=== PATIENT | female | born 1980 | race Caucasian/White ===

== ENCOUNTER 2024-05-19 11:21 | Emergency (ER) | payer OTHER, SELFPAY ==
--- NOTE | 2024-05-19 11:28 | ED.GENMED ---
ED Provider Triage
<CASANDRA Matos - Last Filed: 05/19/24 14:40>
-
Patient seen by provider in Triage?: Seen in Triage
Attestation: A medical screening examination has been initiated by a qualified medical provider. Based on the assessment performed at this time, it has been determined that an emergent medical condition may exist and the patient has been informed
that further medical evaluation and possible additional diagnostic testing may be needed.
HPI: 43 yr old female with past medical history of lymphocytic Hodgkin's currently receiving immune therapy presents to the ED for eval of Chest pain. Since May 02 she felt like she had indigestion, 'burning ' worse with sleeping and laying
flat. She mcclendon however feel pain in left upper scapula region . She reports pain is worse at night. She feels more a dull ache in he upper left back during the day.midly SOB w/ exertion.
She had initial EKG done on May 02 and was called and was told it was abnormal yesterday.
(Followed by DR De La Rosa)
Pt with no CAD history.
Non smoker
Pt will need to be premedicate for ct scan
GENERAL: Alert , in no apparent distress
EYE: No visual abnormalities.
NECK: Trachea midline
ENT: No visible abnormalities.
LUNGS: No acute respiratory distress
CV: Tachycardic
NEUROLOGICAL: Alert and oriented
SKIN: Skin intact. No visible changes.
MUSCULOSKELETAL: Moving extremities normally
PSYCH: Normal and appropriate interaction.
This is a medical evaluation conducted in person to initiate diagnostic evaluation and provide initial therapeutics. Please see further documentation by the treating clinician.
History of Present Illness
<CASANDRA Matos - Last Filed: 05/19/24 14:40>
General
Chief Complaint: Chest Pain
Time Seen by Provider: 05/19/24 15:17
<Rohit Mullins Jr., PA-C - Last Filed: 05/19/24 19:31>
General
Source: patient
Exam Limitations: none
Nursing documentation reviewed up to this point in time: agreed with
History of Present Illness
History of Present Illness:
43-year-old female presenting to the emergency department today with concerns of palpitations seems to be worse at night also some achiness to the left chest described as tightness as well intermittently to the left arm and back. Worse at night
worse laying down improves during the day. Denies nausea vomiting diaphoresis. He is getting treatment currently for Hodgkin's lymphoma
Past History
<CASANDRA Matos - Last Filed: 05/19/24 14:40>
Past History
ED Past Medical History: None
ED Past Surgical History: None
Review of Systems
<Rohit Mullins Jr., PA-C - Last Filed: 05/19/24 19:31>
Review of Systems
Allergies reviewed?: Yes
All Other Systems: ROS reviewed and negative except as documented in HPI and ROS
Phy Exam
<Rohit Mullins Jr., PA-C - Last Filed: 05/19/24 19:31>
Physical Exam
Physical Exam:
GENERAL: Alert , in no apparent distress
EYE: pupils equal and reactive
NECK: Supple, no significant adenopathy.
ENT: o/p clr, mmm.
CARDIAC: Regular rate and rhythm .
LUNGS: Clear breath sounds bilaterally, no acute respiratory distress, no wheezes/rales/rhonchi
ABDOMEN: Soft, without focal tenderness, no r/g, no cvat
NEUROLOGICAL: Alert and oriented, no focal neuro deficits
SKIN: Warm and dry, skin intact.
MUSCULOSKELETAL: No edema, well perfused.
PSYCH: Normal and appropriate interaction.
Scores
<Rohit Mullins Jr., PA-C - Last Filed: 05/19/24 19:31>
Heart Score for Chest Pain Patients
STEMI patient?: No
History: Slightly or Non-Suspicious
ECG: Normal
Age: </= 45 years
Risk Factors: No Risk Factors
Troponin: </= Normal Limit
Heart Score for Chest Pain Patients: 0
Heart Score Risk: 2.5% MACE over next 6 weeks
Course
<CASANDRA Matos - Last Filed: 05/19/24 14:40>
Orders/Labs/Results
Orders:
Orders
05/19/24 11:21
EKG [Electrocardiogram (*1)] Urgent
Reason for Study: Chest Pain
EKG- Treatment ONCE
05/19/24 11:39
CT Chest PE Study Urgent
Comment:
Reason For Exam: sob/cp
Test Result ONCE
05/19/24 11:46
Complete Blood Count/With Diff Urgent
Comprehensive Metabolic Panel Urgent
05/19/24 11:59
Troponin I Urgent
05/19/24 15:33
HCG, Urine Qualitative Screen Urgent
Date Specimen was Collected: 05/19/24
Time Specimen was Collected: 15:09
05/19/24 15:54
0.9% Sodium Chloride 1000 ml [Nss] 1,000 ml IV BOLUS
Abnormal Lab Results
05/19/24
11:46
WBC 19.2 H 10^3/uL
(4.8-10.8)
MCV 79.3 L fL
(81.0-99.0)
MCH 26.2 L pg
(27.0-31.0)
MPV 10.9 H fL
(7.4-10.4)
Abs Immat Gran (auto) 0.3 H 10^3/uL
(0-0.05)
Absolute Neuts (auto) 9.1 H 10^3/uL
(1.4-6.5)
Absolute Lymphs (auto) 7.8 H 10^3/uL
(1.2-3.4)
Absolute Monos (auto) 1.5 H 10^3/uL
(0.1-0.6)
Immature Gran % 1.7 H %
(0-0.5)
Creatinine 0.5 L mg/dL
(0.6-1.0)
Glucose 114 H mg/dl
(70-99)
ALT 38 H U/L
(0-35)
05/19/24 11:46
05/19/24 11:46
Vital Signs
Initial and Last Documented VS:
Initial Vital Signs
Temp Pulse Resp BP Pulse Ox
98.4 F 129 18 197/103 98
05/19/24 11:34 05/19/24 11:34 05/19/24 11:34 05/19/24 11:34 05/19/24 11:34
Last Documented Vital Signs
Temp Pulse Resp BP Pulse Ox
98.4 F 103 16 135/79 100
05/19/24 11:34 05/19/24 17:00 05/19/24 17:00 05/19/24 18:20 05/19/24 18:20
<Rohit Mullins Jr., PA-C - Last Filed: 05/19/24 19:31>
Orders/Labs/Results
Orders:
Orders
05/19/24 11:21
EKG [Electrocardiogram (*1)] Urgent
Reason for Study: Chest Pain
EKG- Treatment ONCE
05/19/24 11:39
CT Chest PE Study Urgent
Comment:
Reason For Exam: sob/cp
Test Result ONCE
05/19/24 11:46
Complete Blood Count/With Diff Urgent
Comprehensive Metabolic Panel Urgent
05/19/24 11:59
Troponin I Urgent
05/19/24 15:33
HCG, Urine Qualitative Screen Urgent
Date Specimen was Collected: 05/19/24
Time Specimen was Collected: 15:09
05/19/24 15:54
0.9% Sodium Chloride 1000 ml [Nss] 1,000 ml IV BOLUS
Abnormal Lab Results
05/19/24
11:46
WBC 19.2 H 10^3/uL
(4.8-10.8)
MCV 79.3 L fL
(81.0-99.0)
MCH 26.2 L pg
(27.0-31.0)
MPV 10.9 H fL
(7.4-10.4)
Abs Immat Gran (auto) 0.3 H 10^3/uL
(0-0.05)
Absolute Neuts (auto) 9.1 H 10^3/uL
(1.4-6.5)
Absolute Lymphs (auto) 7.8 H 10^3/uL
(1.2-3.4)
Absolute Monos (auto) 1.5 H 10^3/uL
(0.1-0.6)
Immature Gran % 1.7 H %
(0-0.5)
Creatinine 0.5 L mg/dL
(0.6-1.0)
Glucose 114 H mg/dl
(70-99)
ALT 38 H U/L
(0-35)
05/19/24 11:46
05/19/24 11:46
Vital Signs
Initial and Last Documented VS:
Initial Vital Signs
Temp Pulse Resp BP Pulse Ox
98.4 F 129 18 197/103 98
05/19/24 11:34 05/19/24 11:34 05/19/24 11:34 05/19/24 11:34 05/19/24 11:34
Last Documented Vital Signs
Temp Pulse Resp BP Pulse Ox
98.4 F 103 16 135/79 100
05/19/24 11:34 05/19/24 17:00 05/19/24 17:00 05/19/24 18:20 05/19/24 18:20
<Rohit Mullins Jr., PA-C - Last Filed: 05/19/24 19:31>
MDM/Problems Addressed
MDM/Problems Addressed:
43-year-old female presenting to the emergency department intermittent chest pain mainly at night when laying flat some palpitations as well. Was told she had an abnormal EKG a few weeks ago. Upon arrival she was tachycardic and hypertensive but
improved after receiving fluids to 100 even and normal blood pressure. White count elevated however this was outpatient labs that she was able to pull up on her phone without significant acute changes. She is followed by Dr. De La Rosa. Troponin
negative. Patient is tachycardic but otherwise EKG without emergent findings. CT PE without emergent findings. Otherwise patient advised for close cardiology follow-up. Return precautions given.
<Rohit Mullins Jr., PA-C - Last Filed: 05/19/24 19:31>
*Critical Care Note
Total Time (30-74mins, 75-104mins- exclusive of procedures): Not Applicable
ED Attending Note
<CASANDRA Matos - Last Filed: 05/19/24 14:40>
-
Portions of this chart may have been created with voice recognition software.� Occasional wrong word or��sound alike� substitutions may have occurred due to the inherent limitations of voice recognition software.
Discharge Plan
Departure
Patient Disposition: Home (Routine Discharge)
Date of Disposition: 05/19/24
Time of Disposition: 19:30
Patient with high blood pressure during this ER visit?: No
Condition: Good
Covid-19: Not Applicable
Discharge Problem:
Chest pain
Instructions: Chest Pain CBC Follow Up
Prescriptions:
No Action
lisinopril 5 MG tablet
5 mg PO DAILY
escitalopram oxalate 5 MG tablet
5 mg PO DAILY
cephalexin 500 MG capsule
500 mg PO QID Qty: 28 0RF
Referrals:
Darling Panda MD [Family Provider] -
Activity Restrictions/Additional Instructions:
You came to the emergency department today with concerns of chest discomfort. Here he had a reassuring assessment. Please follow closely with cardiology in the next 1 to 2 weeks. Return to the emergency department for any worsening, new or
concerning symptoms.
Interventions
Interventions:
*Risk Screen - Suicide Last Done: 05/19/24 11:38
*General Assessment Last Done: 05/19/24 11:38
*Neglect/Abuse Screening Last Done: 05/19/24 11:38
ED- Fall Risk Assessment Last Done: 05/19/24 15:13
*ED COVID-19 Vaccine History Last Done: 05/19/24 15:13
ED- Cardiac Assessment Last Done: 05/19/24 15:13
Discharge Date and Time
Print Language: CUBAN
[2024-05-19 11:34] VITALS: BP 197/103
[2024-05-19 12:13] LABS: Hematocrit 40.6 % (37.0-47.0); Hemoglobin 13.4 g/dL (12.0-16.0); Mean Corpuscular Hgb 26.2 pg (27.0-31.0); Mean Corpuscular Volume 79.3 fL (81.0-99.0); Mean Platelet Volume 10.9 fL (7.4-10.4); Platelet Count 167 10^3/uL (130-400); Red Blood Cell Count 5.12 10^6/uL (4.20-5.40); Red Cell Dist. Width 13.3 % (11.5-14.5); White Blood Cell Count 19.2 10^3/uL (4.8-10.8)
[2024-05-19 12:15] LABS: ALT (SGPT) 38 U/L (0-35); AST (SGOT) 35 U/L (14-36); Albumin 4.7 g/dl (3.5-5.0); Alkaline Phosphatase 82 U/L (38-126); Blood Urea Nitrogen 9 mg/dl (7-17); Calcium 9.1 mg/dl (8.4-10.2); Carbon Dioxide 28 mmol/L (22-30); Chloride 101 mmol/L (98-107); Glucose 114 mg/dl (70-99); Potassium 3.9 mmol/L (3.5-5.1); Sodium 138 mmol/L (135-145); Total Bilirubin 0.7 mg/dl (0.2-1.3); Total Protein 7.1 g/dl (6.3-8.2); eGFR > 60.00
[2024-05-19 13:01] LABS: Troponin I < 0.012 ng/ml
[2024-05-19 13:27] LABS: % Basophils 0.4 % (0-2); % Eosinophils 2.1 % (0-6); % Immature Granulocytes 1.7 % (0-0.5); % Lymphocytes 40.7 % (20.5-51.1); % Monocytes 7.9 % (1.7-9.3); % Neutrophils 47.2 % (42.2-75.2); Absolute Basophils 0.1 10^3/uL (0-0.2); Absolute Eosinophils 0.4 10^3/uL (0-0.7); Absolute Immature Granulocytes 0.3 10^3/uL (0-0.05); Absolute Lymphocytes 7.8 10^3/uL (1.2-3.4); Absolute Monocytes 1.5 10^3/uL (0.1-0.6); Absolute Neutrophils 9.1 10^3/uL (1.4-6.5); Nucleated Red Blood Cells % 0 %
[2024-05-19 15:13] VITALS: BMI 43.4
[2024-05-19 15:44] VITALS: BP 160/78
[2024-05-19 15:57] VITALS: BP 147/81
[2024-05-19 16:00] VITALS: BP 135/69
[2024-05-19] MEDS: NSS 1000 IV (16:00)
[2024-05-19 16:05] LABS: HCG, Urine Qualitative Screen Negative
[2024-05-19 17:00] VITALS: BP 120/71
[2024-05-19 18:20] VITALS: BP 135/79
== END 2024-05-19 19:45 | disposition home or self-care (01) ==
LOC: EMR 11:21
PROVIDERS: Nurse Practitioner; EMERGENCY PHYSICIAN Emergency Medicine; FAMILY PHYSICIAN Family Medicine
DX: R07.89 Other chest pain (principal)
CPT/HCPCS: 99285; 96360; 71275; 80053; 81025; 84484; 85025; 93005; Q9967

== ENCOUNTER → 2024-06-23 07:24 | Outpatient (REF) | payer OTHER, SELFPAY | LOC: HWRCS 07:24 | PROVIDERS: ATTENDING PHYSICIAN Internal Medicine Cardiovascular Disease; FAMILY PHYSICIAN Family Medicine | DX: R00.0 Tachycardia, unspecified (principal); R00.2 Palpitations; R07.89 Other chest pain; K21.9 Gastro-esophageal reflux disease without esophagitis; Z87.59 Personal history of other complications of pregnancy, childbirth and the puerperium; C85.90 Non-Hodgkin lymphoma, unspecified, unspecified site | CPT/HCPCS: 93306 ==

== ENCOUNTER → 2024-06-28 12:21 | Outpatient (REF) | payer OTHER, SELFPAY | LOC: RCS 12:21 | PROVIDERS: ATTENDING PHYSICIAN Internal Medicine Cardiovascular Disease; FAMILY PHYSICIAN Family Medicine | DX: R00.0 Tachycardia, unspecified (principal); R00.2 Palpitations; R07.89 Other chest pain; K21.9 Gastro-esophageal reflux disease without esophagitis; Z87.59 Personal history of other complications of pregnancy, childbirth and the puerperium; C85.90 Non-Hodgkin lymphoma, unspecified, unspecified site | CPT/HCPCS: 93017 ==

== ENCOUNTER → 2024-07-12 14:23 | Outpatient (REF) | payer OTHER, SELFPAY ==
--- NOTE | 2024-07-12 15:40 | CARDSERVDEF ---
Echocardiogram with Definity completed after protocol screening completed. Allergies verified.
Patent IV site: _LAC____
IV site flushed with 0.9% NaCl pre and post administration.
Diluted bolus method utilized to enhance visualization of ventricular cagle.
Total volume given: _4___ mL
Patient tolerated all procedures well without complications.
== END ==
LOC: RCS 14:23
PROVIDERS: ATTENDING PHYSICIAN Internal Medicine Cardiovascular Disease; FAMILY PHYSICIAN Family Medicine
DX: R94.39 Abnormal result of other cardiovascular function study (principal); R07.9 Chest pain, unspecified
CPT/HCPCS: 93017; 93350; Q9957